=== PATIENT | female | born 1985 | race Caucasian/White ===

== ENCOUNTER 2016-04-15 09:00 | Emergency (ER) | payer SELFPAY ==
[~2016-04-15] VITALS: Ht 167.6 cm; Wt 68.2 kg
[~2016-04-15 09:00] MED LIST: AMOXICILLIN 50500 MG PO; ATIVAN 0.50.5 MG/TAB PO; CIPRO 500MG TA500 MG PO; DOXYCYCLINE 10100 MG PO; FLAGYL500 MG PO; NO HOME MEDICATIONS; NORCO 325 MG-51 TAB PO; PERCOCET 325 MG1 TA2 PO; PHENERGAN 25 TA25 MG PO; PREDNISONE20 MG PO; PROVENTIL0.09 MG/A1 IH; VENTOLIN0.09 MG IH; ZITHROMAX Z PA250 MG PO; ZOFRAN 4MG T4 MG/TAB PO; ZOFRAN ODT4 MG PO
[2016-04-15 09:03] VITALS: BP 116/74; PULSE 69; TEMP 98.5
[2016-04-15] MEDS ORDERED: CHERATUSSIN AC120 ML PO (10:20)
[2016-04-15] MEDS ORDERED: PROAIR HFA0.09 MG/AC IH (10:20)
== END 2016-04-15 10:38 | disposition home or self-care (01) ==
LOC: COL.ER 09:00
DX: J20.9 Acute bronchitis, unspecified (principal); F17.211 Nicotine dependence, cigarettes, in remission; J45.909 Unspecified asthma, uncomplicated

== ENCOUNTER 2016-05-20 20:53 | Emergency (ER) | payer SELFPAY ==
[~2016-05-20] VITALS: Ht 162.6 cm; Wt 68.2 kg
[~2016-05-20 20:53] MED LIST changes: +CHERATUSSIN AC120 ML PO; +PROAIR HFA0.09 MG/AC IH
[2016-05-20 20:55] VITALS: BP 113/89; TEMP 99.8
[2016-05-20] MEDS ORDERED: AMOXICILLIN 8751 TAB PO (21:31)
[2016-05-20] MEDS ORDERED: NORCO 325 MG-51 TAB PO (21:31)
[2016-05-20 21:48] VITALS: PULSE 105
== END 2016-05-20 21:48 | disposition home or self-care (01) ==
LOC: COL.ER 20:53
DX: H66.92 Otitis media, unspecified, left ear (principal)
CPT/HCPCS: J1885

== ENCOUNTER 2017-04-08 18:21 | Emergency (ER) | payer SELFPAY ==
[~2017-04-08] VITALS: Ht 162.6 cm; Wt 68.2 kg
[~2017-04-08 18:21] MED LIST changes: +AMOXICILLIN 8751 TAB PO
[2017-04-08 18:25] VITALS: BP 109/75; TEMP 99.5
[2017-04-08 19:39] VITALS: PULSE 77
== END 2017-04-08 19:43 | disposition home or self-care (01) ==
LOC: COL.ER 18:21
DX: J06.9 Acute upper respiratory infection, unspecified (principal); F17.210 Nicotine dependence, cigarettes, uncomplicated

== ENCOUNTER 2017-07-24 20:52 | Emergency (ER) | payer SELFPAY ==
[2017-07-24 20:54] VITALS: TEMP 99.1
[2017-07-24 21:10] LABS: COLLECTION METHOD CLEAN CATCH
[2017-07-24 21:26] LABS: MUCOUS Present /lpf; PH 5 (5-8); URINE APPEARANCE Cloudy; URINE BACTERIA None Seen /hpf; URINE BILIRUBIN Negative (NEGATIVE); URINE BLOOD 2+ (NEGATIVE); URINE COLOR Amber; URINE GLUCOSE Negative (NEGATIVE); URINE KETONE Negative (NEGATIVE); URINE LEUKOCYTE ESTERASE Negative (NEGATIVE); URINE NITRATE Negative (NEGATIVE); URINE PROTEIN(semi-quant) 1+ (NEGATIVE); URINE UROBILINOGEN >=4.0 mg/dL (NEGATIVE)
[2017-07-24 21:37] LABS: BASO % 0.5 % (0.0-2.0); EOS % 0.4 % (0-4.0); GRAN # 5.3 (1.4-6.5); GRAN % 70.8 % (42.2-75.2); HEMATOCRIT 40.3 % (37.0-47.0); LYMPH # 1.5 (1.2-3.4); LYMPH % 20.5 % (20.0-51.0); MEAN CELL VOLUME 84 fl (80.0-100.0); MEAN CORPUSCULAR HEMOGLOBIN 29 pg (27.0-31.0); MEAN CORPUSCULAR HGB CONC 35 g/dl (33.0-37.0); MEAN PLATELET VOLUME 12.6 fl (7.4-10.4); MONO # 0.6 (0.1-0.6); MONO % 7.5 % (1.7-9.3); PLATELET COUNT 158 K/mm3 (130-400); RED BLOOD COUNT 4.81 M/mm3 (4.10-5.30); REDCELL DISTRIBUTION WIDTH-CV 12.8 % (11.5-14.5)
[2017-07-25 01:27] VITALS: BP 116/75; PULSE 61
== END 2017-07-25 01:27 | disposition home or self-care (01) ==
LOC: COL.ER 20:52
PROVIDERS: Nurse Practitioner
DX: O20.0 Threatened abortion (principal); O99.511 Diseases of the respiratory system complicating pregnancy, first trimester; J45.909 Unspecified asthma, uncomplicated; O99.341 Other mental disorders complicating pregnancy, first trimester; F41.9 Anxiety disorder, unspecified; O99.331 Smoking (tobacco) complicating pregnancy, first trimester; F17.210 Nicotine dependence, cigarettes, uncomplicated; Z98.890 Other specified postprocedural states; Z88.2 Allergy status to sulfonamides; Z3A.08 8 weeks gestation of pregnancy
CPT/HCPCS: J2791